=== PATIENT | female | born 1950 | race Caucasian/White ===

== ENCOUNTER 2020-08-30 09:23 | Day surgery (SDC) | payer MEDICARE, BC ==
[~2020-08-30 09:23] MED LIST: Lactated Ringers 1,000 ML IV SCH; Sodium Chloride 0.9% 10 ML Syringe FLUSH PRN
[2020-08-30] MEDS ORDERED: Midazolam 1 MG/ML 2 ML SDV ONE ×2 (09:58→11:27)
[2020-08-30] MEDS ORDERED: Propofol 200 MG/20 ML SDV ONE ×2 (09:59→11:27)
--- NOTE | 2020-08-30 10:46 | PCM.PN ---
- General Info Date of Service: 08/30/20 - Review of Systems Systems Review Comment:: 70-year-old female referred for screening colonoscopy. It has been many years since her prior colon exam. She denies any recent change in bowel pattern. Specifically she has not noticed any rectal bleeding or change in bowel pattern. She also denies any known history of family history of colon cancer. Patient is medically stable to proceed today. Her recent history and physical is reviewed and no significant changes are noted. I have discussed the proposed colonoscopy with the patient. Risks such as but not limited to bleeding and GI injury reviewed. She agrees to proceed. - Patient Data Vitals - Most Recent: Last Vital Signs Temp 97.8 F 08/30/20 10:18 Pulse 74 08/30/20 10:18 Resp 16 08/30/20 10:18 BP 132/72 08/30/20 10:18 Pulse Ox 98 08/30/20 10:18 Weight - Most Recent: 119 kg Lab Results Last 24 Hours: Laboratory Results - last 24 hr 08/30/20 Range/Units 10:14 POC Glucose 129 H (65-110) mg/dl Med Orders - Current: Current Medications Lactated Ringer's (Ringers, Lactated) 1,000 mls @ 125 mls/hr IV ASDIRECTED ABBI Last Admin: 08/30/20 10:15 Dose: 125 mls/hr Documented by: Sodium Chloride (Saline Flush) 10 ml FLUSH ASDIRECTED PRN PRN Reason: Keep Vein Open Discontinued Medications Midazolam HCl (Versed 1 Mg/Ml) Confirm Administered Dose 2 mg .ROUTE .STK-MED ONE Stop: 08/30/20 09:59 Propofol (Diprivan 20 Ml) Confirm Administered Dose 400 mg .ROUTE .STK-MED ONE Stop: 08/30/20 10:00 Sepsis Event Note - Focused Exam Vital Signs: Vital Signs Temp Pulse Resp BP Pulse Ox 08/30/20 10:18 97.8 F 74 16 132/72 98 - Problem List Review Problem List Initiated/Reviewed/Updated: Yes - My Orders Last 24 Hours: My Active Orders 08/30/20 08:00 Accu Check [Blood Glucose Check, Bedside] [RC] ONETIME - Assessment Assessment:: Colon cancer screening - Plan Plan:: Colonoscopy
--- NOTE | 2020-08-30 11:34 | PCM.OPNOTE ---
- General Post-Op/Procedure Note Date of Surgery/Procedure: 08/30/20 Operative Procedure(s): Colonoscopy with polypectomy Findings: Multiple small polyps Moderate sigmoid diverticulosis Pre Op Diagnosis: Colon cancer screening Post-Op Diagnosis: Colon polyps. Diverticulosis Anesthesia Technique: MAC Primary Surgeon: Andrew Mcgill Pathology: Colon polyps EBL in mLs: 2 Complications: None Condition: Good
--- NOTE | 2020-08-30 13:19 | OR ---
Date of Procedure: 08/30/2020 PREOPERATIVE DIAGNOSIS: Colon cancer screening. POSTOPERATIVE DIAGNOSIS: Colon polyps and sigmoid diverticulosis. OPERATIONS PERFORMED: Colonoscopy with polypectomy. INDICATIONS FOR SURGERY: This 70-year-old female comes today for colonoscopy. She denies any recent change in bowel pattern, but states that it has been several years since her last colonoscopy. FINDINGS: Multiple small polyps were noted in the colon. Each are 4 to 5 mm in size. They are located in the sigmoid colon, 25 cm from the anal verge, splenic flexure, and also a cluster of 2 polyps in the ascending colon. The patient also has moderate diverticulosis of the sigmoid region. DESCRIPTION OF PROCEDURE: The patient was taken to the operating room. She was given intravenous sedation, and with her in the left lateral decubitus position, digital rectal exam was performed showing no rectal masses. The Olympus colonoscope was inserted into the rectum. Retroflexed examination of the rectal canal was performed. The scope was then carefully advanced under direct visualization through the entire length of the colon until the cecum was reached. Cecal acquisition was confirmed by noting normal internal cecal anatomy including the appendiceal orifice and the ileocecal valve. The colon was somewhat tortuous and accessing the cecum did require hand pressure, but was able to be eventually safely accomplished. After examining the cecum, the scope was slowly withdrawn sequentially re-examining the colonic segments. During insertion and withdrawal of the scope, the above-described polyps were each identified and when identified, they were all removed with the cold biopsy forceps completely removing all of the small polyps. After the examination had been completed and with no sign of any complication, the scope was removed and the patient was taken from the operating room in satisfactory condition. ESTIMATED BLOOD LOSS: 2 mL. COMPLICATIONS: None. PROGNOSIS: Good. PIPPA Mcgill MD /[id number]
== END 2020-08-30 12:45 | disposition home or self-care (01) ==
LOC: LL.SDS 09:23
PROVIDERS: ATTEND Surgery
DX: Z12.11 Encounter for screening for malignant neoplasm of colon (principal); D12.2 Benign neoplasm of ascending colon; K57.30 Diverticulosis of large intestine without perforation or abscess without bleeding; K63.89 Other specified diseases of intestine; I12.9 Hypertensive chronic kidney disease with stage 1 through stage 4 chronic kidney disease, or unspecified chronic kidney disease; E11.22 Type 2 diabetes mellitus with diabetic chronic kidney disease; N18.32 Chronic kidney disease, stage 3b; E03.9 Hypothyroidism, unspecified; E66.01 Morbid (severe) obesity due to excess calories; F32.9 Major depressive disorder, single episode, unspecified; Z01.812 Encounter for preprocedural laboratory examination; Z20.828 Contact with and (suspected) exposure to other viral communicable diseases; Z88.8 Allergy status to other drugs, medicaments and biological substances; Z79.899 Other long term (current) drug therapy; Z79.4 Long term (current) use of insulin; Z79.890 Hormone replacement therapy; Z68.42 Body mass index [BMI] 45.0-49.9, adult
CPT/HCPCS: 00812; 82962; J2250; J2704; J7120; U0002

== ENCOUNTER 2021-07-28 14:48 | Emergency (ER) | payer MEDICARE, BC ==
[2021-07-28] MEDS ORDERED: Meclizine 25 MG Tab PO ONE (15:34)
--- NOTE | 2021-07-28 15:47 | EDM.PDOC ---
ED HPI GENERAL MEDICAL PROBLEM - General Chief Complaint: General Stated Complaint: INNER EAR PROBLEMS, MULTIPLE COMPLAINTS Time Seen by Provider: 07/28/21 15:00 Source of Information: Reports: Patient History Limitations: Reports: No Limitations - History of Present Illness INITIAL COMMENTS - FREE TEXT/NARRATIVE: Patient comes to ER with complaint of dizziness. Worse with head rotation. Worse when rolling over in bed at night. Sometimes feels weak in knees. Started two weeks ago. Has had some headaches. No specific ear pain. No vision changes. No sore throat/URI complaints. No runny nose. A little more achy in joints/back. Sometimes feels like abdomen is "burning" (has history of GERD) No cough/SOB/respiratory changes. No UTI complaints. Had one episode nausea/emesis. No bowel changes. No new focal neuro deficits. Denies fevers but has had some chills at night since dizziness started. - Related Data Allergies Allergy/AdvReac Type Severity Reaction Status Date / Time Cephalosporins Allergy Itching Verified 07/28/21 15:02 medroxyprogesterone Allergy Itching Verified 07/28/21 15:02 sunscreen Allergy Hives Uncoded 07/28/21 15:02 Home Meds: Home Meds Bisoprolol/Hydrochlorothiazide [Ziac 5-6.25 MG] 1 tab PO DAILY 08/29/20 [History] Colesevelam [Welchol] 3 tab PO BIDAC 08/29/20 [History] Fenofibrate 50 mg PO DAILY 08/29/20 [History] Fenofibrate 150 mg PO DAILY 08/29/20 [History] Insulin Glargine,Hum.Rec.Anlog [Lantus Solostar] 88 unit SQ DAILY 08/29/20 [History] Levothyroxine Sodium [Synthroid] 175 mcg PO ACBREAKFAST 08/29/20 [History] Liraglutide [Victoza] 1.2 mg SUBCUT DAILY 08/29/20 [History] Sertraline [Zoloft] 100 mg PO DAILY 08/29/20 [History] lisinopriL [Lisinopril] 5 mg PO DAILY 08/29/20 [History] metFORMIN HCl [Metformin HCl] 1,000 mg PO DAILY 08/29/20 [History] Amoxicillin/Potassium Clav [Augmentin 875-125 Tablet] 1 each PO Q12H #13 tablet 07/28/21 [Rx] Meclizine [Antivert] 25 mg PO Q6H PRN #50 tab 07/28/21 [Rx] Past Medical History HEENT History: Reports: Impaired Vision Other HEENT History: wears glasses Cardiovascular History: Reports: High Cholesterol, Hypertension Respiratory History: Reports: Sleep Apnea Gastrointestinal History: Reports: GERD Genitourinary History: Reports: Urinary Incontinence Psychiatric History: Reports: Anxiety, Depression Endocrine/Metabolic History: Reports: Hyperthyroidism, IDDM, Obesity/BMI 30+ - Past Surgical History GI Surgical History: Reports: Colonoscopy Female Surgical History: Reports: Section Social & Family History - Caffeine Use Caffeine Use: Reports: Soda ED ROS GENERAL - Review of Systems Review Of Systems: Comprehensive ROS is negative, except as noted in HPI. ED EXAM, GENERAL - Physical Exam Exam: See Below Exam Limited By: No Limitations General Appearance: Alert, No Apparent Distress, Obese Eye Exam: Bilateral Eye: EOMI, PERRL Ears: Normal External Exam, Normal Canal, Hearing Grossly Normal Ear Exam: Right Ear: TM Dull, TM Red, TM Bulging, Left Ear: TM normal Nose: No: Nasal Deformity, Nasal Swelling, Nasal Drainage Throat/Mouth: Normal Inspection, Normal Lips, Normal Voice, No Airway Compromise Head: Atraumatic, Normocephalic Neck: Supple, Non-Tender, Full Range of Motion. No: Lymphadenopathy (L), Lymphadenopathy (R) Respiratory/Chest: No Respiratory Distress, Lungs Clear, Normal Breath Sounds, No Accessory Muscle Use Cardiovascular: Regular Rate, Rhythm, No Murmur GI/Abdominal: Normal Bowel Sounds, Soft, Non-Tender, No Distention (Female) Exam: Deferred Rectal (Female) Exam: Deferred Back Exam: No: CVA Tenderness (L), CVA Tenderness (R), Muscle Spasm Extremities: Normal Range of Motion, Non-Tender, Normal Capillary Refill Neurological: Alert, Oriented, CN II-XII Intact, Normal Cognition, No Motor/Sensory Deficits Psychiatric: Normal Affect, Normal Mood Skin Exam: Warm, Dry, Intact, Normal Color Course - Vital Signs Last Recorded V/S: Last Vital Signs Temp 36.6 C 07/28/21 15:00 Pulse 84 07/28/21 15:00 Resp 18 07/28/21 15:00 BP 135/71 07/28/21 15:00 Pulse Ox 99 07/28/21 15:00 - Orders/Labs/Meds Orders: Active Orders 24 hr Category Date Time Status CORONAVIRUS COVID-19 KUMAR [MOLEC] Stat Lab 07/28/21 15:50 Received Isolation [COMM] Routine Oth 07/28/21 15:40 Active Labs: Laboratory Tests 07/28/21 07/28/21 07/28/21 Range/Units 15:43 15:43 15:50 WBC 8.5 (4.0-10.2) K/uL RBC 4.47 (3.77-5.09) M/uL Hgb 13.5 (11.7-15.5) g/dL Hct 39.1 (34.0-46.0) % MCV 87.5 (84.0-98.0) fL MCH 30.2 (28.2-33.3) pg MCHC 34.5 (31.7-36.0) g/dL RDW 13.0 (11.2-14.1) % Plt Count 292 (150-350) K/uL Neut % (Auto) 49.6 (45.0-80.0) % Lymph % (Auto) 36.2 (10.0-50.0) % [place] % (Auto) 4.6 (2.0-14.0) % Eos % (Auto) 8.8 H (0.0-5.0) % Baso % (Auto) 0.8 (0.0-2.0) % Neut # (Auto) 4.19 (1.40-7.00) K/uL Lymph # (Auto) 3.06 (0.50-3.50) K/uL [place] # (Auto) 0.39 (0.00-1.00) K/uL Eos # (Auto) 0.74 H (0.00-0.50) K/uL Baso # (Auto) 0.07 (0.00-0.20) K/uL Sodium 141 (136-145) mmol/L Potassium 4.4 (3.5-5.1) mmol/L Chloride 107 (98-107) mmol/L Carbon Dioxide 24.1 (21.0-32.0) mmol/L Anion Gap 9.9 (7-15) meq/L BUN 20 H (7-18) mg/dL Creatinine 1.34 H (0.51-1.17) mg/dL Est Cr Clr Drug Dosing 29.48 mL/min Estimated GFR (MDRD) 39 mL/min Glucose 155 H (70-99) mg/dL Calcium 9.1 (8.5-10.1) mg/dL Magnesium 1.9 (1.8-2.4) mg/dL Total Bilirubin 0.3 (0.2-1.0) mg/dL AST 26 (15-37) U/L ALT 35 (12-78) U/L Alkaline Phosphatase 33 L (46-116) IU/L Troponin I High Sens 5 (<=51) ng/L Total Protein 7.2 (6.4-8.2) g/dL Albumin 3.5 (3.4-5.0) g/dL Amylase 51 (25-115) U/L Lipase 267 (73-393) U/L Specimen Type Urine Color Urine Appearance Urine pH (5.0-9.0) Ur Specific [place] (1.005-1.030) Urine Protein (NEGATIVE) mg/dL Urine Glucose (UA) (NEGATIVE) mg/dL Urine Ketones (NEGATIVE) mg/dL Urine Occult Blood (NEGATIVE) Urine Nitrite (NEGATIVE) Urine Bilirubin (NEGATIVE) Urine Urobilinogen (0.2-1.0) E.U./dL Ur Leukocyte Esterase (NEGATIVE) Urine RBC /HPF Urine WBC /HPF Ur Epithelial Cells /LPF Urine Bacteria (NONE TO FEW) /HPF SARS-CoV-2 Ag (Rapid) Negative (NEGATIVE) 07/28/21 Range/Units 16:03 WBC (4.0-10.2) K/uL RBC (3.77-5.09) M/uL Hgb (11.7-15.5) g/dL Hct (34.0-46.0) % MCV (84.0-98.0) fL MCH (28.2-33.3) pg MCHC (31.7-36.0) g/dL RDW (11.2-14.1) % Plt Count (150-350) K/uL Neut % (Auto) (45.0-80.0) % Lymph % (Auto) (10.0-50.0) % [place] % (Auto) (2.0-14.0) % Eos % (Auto) (0.0-5.0) % Baso % (Auto) (0.0-2.0) % Neut # (Auto) (1.40-7.00) K/uL Lymph # (Auto) (0.50-3.50) K/uL [place] # (Auto) (0.00-1.00) K/uL Eos # (Auto) (0.00-0.50) K/uL Baso # (Auto) (0.00-0.20) K/uL Sodium (136-145) mmol/L Potassium (3.5-5.1) mmol/L Chloride (98-107) mmol/L Carbon Dioxide (21.0-32.0) mmol/L Anion Gap (7-15) meq/L BUN (7-18) mg/dL Creatinine (0.51-1.17) mg/dL Est Cr Clr Drug Dosing mL/min Estimated GFR (MDRD) mL/min Glucose (70-99) mg/dL Calcium (8.5-10.1) mg/dL Magnesium (1.8-2.4) mg/dL Total Bilirubin (0.2-1.0) mg/dL AST (15-37) U/L ALT (12-78) U/L Alkaline Phosphatase (46-116) IU/L Troponin I High Sens (<=51) ng/L Total Protein (6.4-8.2) g/dL Albumin (3.4-5.0) g/dL Amylase (25-115) U/L Lipase (73-393) U/L Specimen Type Urinblad Urine Color Yellow Urine Appearance Slightly cloudy Urine pH 7.0 (5.0-9.0) Ur Specific [place] 1.025 (1.005-1.030) Urine Protein Negative (NEGATIVE) mg/dL Urine Glucose (UA) Negative (NEGATIVE) mg/dL Urine Ketones Negative (NEGATIVE) mg/dL Urine Occult Blood Negative (NEGATIVE) Urine Nitrite Negative (NEGATIVE) Urine Bilirubin Negative (NEGATIVE) Urine Urobilinogen 0.2 (0.2-1.0) E.U./dL Ur Leukocyte Esterase Negative (NEGATIVE) Urine RBC Not seen /HPF Urine WBC 0-5 /HPF Ur Epithelial Cells Many H /LPF Urine Bacteria Few (NONE TO FEW) /HPF SARS-CoV-2 Ag (Rapid) (NEGATIVE) Meds: Medications Discontinued Medications Generic Name Dose Route Start Last Admin Trade Name Freq PRN Reason Stop Dose Admin Amoxicillin/Clavulanate Potassium 1 tab 07/28/21 17:06 Amoxicillin/Clavulanate K 875-125 Mg Tab PO 07/28/21 17:07 ONETIME ONE Meclizine HCl 25 mg 07/28/21 15:34 07/28/21 15:46 Meclizine 25 Mg Tab PO 07/28/21 15:35 25 mg ONETIME ONE Administration - Re-Assessments/Exams Free Text/Narrative Re-Assessment/Exam: 07/28/21 15:49 No nystagmus with head rotation. Right ear shows fluid build up/purulence which could very well likely be causing pt's dizziness episodes. Basic labs ordered. Added Covid and Influenza testing given her complaints of headache/increased arthritis aches/night chills. Meclizine given. 07/28/21 17:15 Labs unremarkable. Plan at this time is to start patient on Augmentin and PRN Meclizine. She is to follow up at clinic if no improvement over the next week. Consider PT referral for the dizziness if needed. Additional workup as needed if symptoms do not improve. Patient in agreement with plan. Departure - Departure Time of Disposition: 17:06 Disposition: Home, Self-Care 01 Condition: Good Clinical Impression: Right otitis media Qualifiers: Otitis media type: suppurative Chronicity: acute Recurrence: non-recurrent Spontaneous tympanic membrane rupture: without spontaneous rupture Qualified Code(s): H66.001 - Acute suppurative otitis media without spontaneous rupture of ear drum, right ear - Discharge Information *PRESCRIPTION DRUG MONITORING PROGRAM REVIEWED*: Not Applicable *COPY OF PRESCRIPTION DRUG MONITORING REPORT IN PATIENT MEAGAN: Not Applicable Prescriptions: Meclizine [Antivert] 25 mg PO Q6H PRN #50 tab PRN Reason: Dizziness Amoxicillin/Potassium Clav [Augmentin 875-125 Tablet] 1 each PO Q12H #13 tablet Referrals: Sarahi Shannon PA [Primary Care Provider] - Forms: ED Department Discharge Additional Instructions: See if symptoms improve. Remember there is always a chance you could be allergic to an antibiotic. If you start to have itching/rash please discontinue the medication. Get follow up appointment at clinic. If dizziness persists you may benefit from referral to physical therapy. They may also want to do more testing such as get baseline head CT as we discussed. You may have picked up a viral infection given the ear issue/dizziness/night chills/increased aches. See if those improve over the next week. If no improvement noted, follow up at clinic. Return to ER if you have sudden severe worsening. Sepsis Event Note (ED) - Evaluation Sepsis Screening Result: No Definite Risk - Focused Exam Vital Signs: Vital Signs Temp Pulse Resp BP Pulse Ox 07/28/21 15:00 36.6 C 84 18 135/71 99 - My Orders Last 24 Hours: My Active Orders 07/28/21 15:40 Isolation [COMM] Routine 07/28/21 15:50 CORONAVIRUS COVID-19 KUMAR [MOLEC] Stat - Assessment/Plan Last 24 Hours: My Active Orders 07/28/21 15:40 Isolation [COMM] Routine 07/28/21 15:50 CORONAVIRUS COVID-19 KUMAR [MOLEC] Stat
[2021-07-28 16:12] LABS: ANION GAP 9.9 meq/L (7-15)
[2021-07-28] MEDS ORDERED: Amoxicillin/Clavulanate K 875-125 MG Tab PO ONE (17:06)
== END 2021-07-28 17:30 | disposition home or self-care (01) ==
LOC: LL.ED 14:48
DX: H66.001 Acute suppurative otitis media without spontaneous rupture of ear drum, right ear (principal); K21.9 Gastro-esophageal reflux disease without esophagitis; I10 Essential (primary) hypertension; E78.00 Pure hypercholesterolemia, unspecified; E05.90 Thyrotoxicosis, unspecified without thyrotoxic crisis or storm; E66.9 Obesity, unspecified; Z68.39 Body mass index [BMI] 39.0-39.9, adult; Z20.822 Contact with and (suspected) exposure to COVID-19; Z79.899 Other long term (current) drug therapy
CPT/HCPCS: 36415; 80053; 81001; 82150; 83690; 83735; 84484; 85025; 87426; 87804; 99284; A9270-GY

== ENCOUNTER 2022-04-09 07:41 | Emergency (ER) | payer MEDICARE, BC ==
[2022-04-09] MEDS ORDERED: methylPREDNISolone Sodium Succinate 125 MG/2 ML SDV IVPUSH ONE (09:33)
[2022-04-09] MEDS ORDERED: Ondansetron 4 MG Tab.DIS PO ONE (09:34)
[2022-04-09] MEDS ORDERED: Acetaminophen/oxyCODONE 325-5 MG Tab PO ONE (09:35)
[2022-04-09] MEDS ORDERED: Morphine 2 MG/ML SYRINGE IVPUSH ONE (09:35)
[2022-04-09] MEDS ORDERED: Acetaminophen 325 MG Tab PO ONE (09:35)
[2022-04-09] MEDS: Sodium Chloride 0.9% 10 ML Syringe FLUSH PRN (09:57)
== END 2022-04-09 10:35 | disposition home or self-care (01) ==
LOC: LL.ED 07:41
DX: G89.29 Other chronic pain (principal); M25.551 Pain in right hip; E78.00 Pure hypercholesterolemia, unspecified; E11.22 Type 2 diabetes mellitus with diabetic chronic kidney disease; I12.9 Hypertensive chronic kidney disease with stage 1 through stage 4 chronic kidney disease, or unspecified chronic kidney disease; N18.9 Chronic kidney disease, unspecified; E05.90 Thyrotoxicosis, unspecified without thyrotoxic crisis or storm; K21.9 Gastro-esophageal reflux disease without esophagitis; Z88.8 Allergy status to other drugs, medicaments and biological substances; Z79.4 Long term (current) use of insulin; Z79.899 Other long term (current) drug therapy
CPT/HCPCS: 36415; 72100; 73502; 80053; 83735; 85025; 96374; 96375; 99284; A9270; J2270; J2930; J3490

== ENCOUNTER 2022-08-09 19:04 | Emergency (ER) | payer MEDICARE, BC ==
[2022-08-09] MEDS ORDERED: Sodium Chloride 0.9% 10 ML Syringe FLUSH PRN (19:17)
[2022-08-09] MEDS ORDERED: Lactated Ringers 1,000 ML IV ONE (19:17)
[2022-08-09] MEDS ORDERED: Ondansetron 4 MG/2 ML SDV IVPUSH ONE (19:18)
[2022-08-09] MEDS ORDERED: Lisinopril 10 MG Tab PO ONE (19:19)
[2022-08-09 19:46] LABS: ANION GAP 9.6 meq/L (7-15)
== END 2022-08-09 23:30 | disposition home or self-care (01) ==
LOC: LL.ED 19:04
DX: K52.9 Noninfective gastroenteritis and colitis, unspecified (principal); I16.0 Hypertensive urgency; E78.00 Pure hypercholesterolemia, unspecified; K21.9 Gastro-esophageal reflux disease without esophagitis; I12.9 Hypertensive chronic kidney disease with stage 1 through stage 4 chronic kidney disease, or unspecified chronic kidney disease; E11.22 Type 2 diabetes mellitus with diabetic chronic kidney disease; N18.9 Chronic kidney disease, unspecified; E05.90 Thyrotoxicosis, unspecified without thyrotoxic crisis or storm; Z87.891 Personal history of nicotine dependence; Z88.1 Allergy status to other antibiotic agents; Z88.8 Allergy status to other drugs, medicaments and biological substances; Z91.048 Other nonmedicinal substance allergy status; Z79.4 Long term (current) use of insulin; Z79.82 Long term (current) use of aspirin; Z79.899 Other long term (current) drug therapy
CPT/HCPCS: 36415; 80053; 81001; 83605; 83735; 85025; 96361; 96374; 99284; A9270; J2405; J7120

== ENCOUNTER 2023-04-16 10:50 | Day surgery (SDC) | payer MEDICARE, BC ==
[~2023-04-16 10:50] MED LIST changes: +Propofol 200 MG/20 ML SDV ONE
[2023-04-16] MEDS ORDERED: Sodium Chloride 0.9% 10 ML Syringe FLUSH PRN ×2 (11:00)
[2023-04-16] MEDS ORDERED: Lactated Ringers 1,000 ML IV SCH ×2 (11:00)
[2023-04-16] MEDS ORDERED: Propofol 200 MG/20 ML SDV ONE (13:11)
== END 2023-04-16 14:10 | disposition home or self-care (01) ==
LOC: LL.SDS 10:50
PROVIDERS: ATTEND Surgery
DX: Z12.11 Encounter for screening for malignant neoplasm of colon (principal); D12.0 Benign neoplasm of cecum; K21.9 Gastro-esophageal reflux disease without esophagitis; K29.50 Unspecified chronic gastritis without bleeding; K31.89 Other diseases of stomach and duodenum; E78.00 Pure hypercholesterolemia, unspecified; G47.30 Sleep apnea, unspecified; E11.22 Type 2 diabetes mellitus with diabetic chronic kidney disease; I12.9 Hypertensive chronic kidney disease with stage 1 through stage 4 chronic kidney disease, or unspecified chronic kidney disease; N18.32 Chronic kidney disease, stage 3b; M19.90 Unspecified osteoarthritis, unspecified site; F33.42 Major depressive disorder, recurrent, in full remission; E55.9 Vitamin D deficiency, unspecified; E78.2 Mixed hyperlipidemia; F03.90 Unspecified dementia, unspecified severity, without behavioral disturbance, psychotic disturbance, mood disturbance, and anxiety; E03.9 Hypothyroidism, unspecified; E66.09 Other obesity due to excess calories; Z79.890 Hormone replacement therapy; Z88.1 Allergy status to other antibiotic agents; Z88.8 Allergy status to other drugs, medicaments and biological substances; Z79.899 Other long term (current) drug therapy; Z79.84 Long term (current) use of oral hypoglycemic drugs; Z90.710 Acquired absence of both cervix and uterus; Z68.42 Body mass index [BMI] 45.0-49.9, adult
CPT/HCPCS: 00813; 82947; 88305; J2704; J7120

== ENCOUNTER 2024-05-03 09:40 | Inpatient (IN) | payer MEDICARE, BC ==
[2024-05-03] MEDS ORDERED: Naloxone 0.4 MG/ML SDV IVPUSH PRN (10:15)
[2024-05-03] MEDS ORDERED: Sodium Chloride 0.9% 10 ML Syringe FLUSH PRN (10:15)
[2024-05-03] MEDS ORDERED: 50% Dextrose in Water 50 ML Syringe IVPUSH PRN (10:15)
[2024-05-03] MEDS ORDERED: Glucagon,Human Recombinant 1 MG Vial IM PRN ×2 (10:15)
[2024-05-03 11:50] LABS: GLUCOSE,POC 144 mg/dL (70-99)
[2024-05-03] MEDS: traMADol 50 MG Tab PO SCH (11:50)
[2024-05-03] MEDS: Insulin Lispro 100 Units/ML 3 ML Vial SUBCUT SCH (12:12)
[2024-05-03] MEDS: Acetaminophen 500 MG Tab PO SCH (14:30)
[2024-05-03 17:38] LABS: GLUCOSE,POC 165 mg/dL (70-99)
[2024-05-03] MEDS: Docusate Sodium 100 MG Cap PO SCH (17:45)
[2024-05-03] MEDS: LIRAGLUTIDE 18 MG/3 ML SQ SCH (17:46)
[2024-05-03] MEDS: Nystatin Topical Powder 15 GM Bottle TOP SCH (20:28)
[2024-05-03] MEDS: Insulin Glarg,Human.Rec.Analog 100 Unit/ML 10 ML Vial SUBCUT SCH (20:29)
[2024-05-03] MEDS: Oxybutynin 5 MG Tab PO SCH (20:29)
[2024-05-03] MEDS: Melatonin 3 MG Tab PO PRN (20:30)
[2024-05-04] MEDS: Melatonin 3 MG Tab ONE (06:45)
[2024-05-04 06:59] LABS: GLUCOSE,POC 162 mg/dL (70-99)
[2024-05-04] MEDS: Polyethylene Glycol 3350 Powder 17 GM Packet PO SCH (07:24)
[2024-05-04] MEDS: Fenofibrate,Micronized 67 MG Cap PO SCH (07:25)
[2024-05-04] MEDS: Fenofibrate,Micronized 134 MG Cap PO SCH (07:26)
[2024-05-04] MEDS: Enoxaparin 30 MG/0.3 ML Syringe SUBCUT SCH (07:27)
[2024-05-04] MEDS: BISOPROLOL PO SCH (07:28)
[2024-05-04] MEDS: COLESEVELAM 625 MG PO SCH (07:28)
[2024-05-04] MEDS: Lactulose Soln 10 GM/15 ML 30 ML UD Cup PO SCH (07:28)
[2024-05-04] MEDS: HYDROCHLOROTHIAZIDE PO SCH (07:28)
[2024-05-04] MEDS: Lisinopril 20 MG Tab PO SCH (07:32)
[2024-05-04 15:12] LABS: CORONAVIRUS COVID-19 NAA NEGATIVE (NEGATIVE)
[2024-05-04 16:48] LABS: GLUCOSE,POC 234 mg/dL (70-99)
[2024-05-04] MEDS ORDERED: Glucagon,Human Recombinant 1 MG Vial IM PRN (17:07)
[2024-05-04] MEDS ORDERED: 50% Dextrose in Water 50 ML Syringe IVPUSH PRN (17:07)
[2024-05-04] MEDS: Morphine 2 MG/ML SYRINGE SUBCUT PRN (17:09)
[2024-05-04] MEDS: metFORMIN 500 MG Tab.ER PO SCH (17:39)
[2024-05-04] MEDS: Insulin Glarg,Human.Rec.Analog 100 Unit/ML 10 ML Vial SUBCUT SCH (20:27)
[2024-05-04 20:29] LABS: GLUCOSE,POC 256 mg/dL (70-99)
[2024-05-05 07:02] LABS: GLUCOSE,POC 178 mg/dL (70-99)
[2024-05-05 13:05] VITALS: BP 132/71; PULSE 73
== END 2024-05-05 13:30 | DRG 561 ==
LOC: LL.MS 10:40
PROVIDERS: ADMIT Physician Assistant Medical; ATTEND Physician Assistant Medical
DX: S42.211D Unspecified displaced fracture of surgical neck of right humerus, subsequent encounter for fracture with routine healing (principal); E11.9 Type 2 diabetes mellitus without complications; Z79.4 Long term (current) use of insulin; Z79.899 Other long term (current) drug therapy; W01.10XA Fall on same level from slipping, tripping and stumbling with subsequent striking against unspecified object, initial encounter
CPT/HCPCS: 82947; 97530-GP; 97535-GO; A9270-GY; J1650; J2270; U0002

== ENCOUNTER 2024-05-29 14:40 | Emergency (ER) | payer MEDICARE, BC ==
[2024-05-29 15:14] LABS: BASOPHILS ABSOLUTE AUTO 0.03 K/uL (0.00-0.20); BASOPHILS PERCENT AUTO 0.3 % (0.0-2.0); EOSINOPHILS PERCENT AUTO 8.1 % (0.0-5.0); HEMATOCRIT 36.6 % (34.0-46.0); HEMOGLOBIN 12.3 g/dL (11.7-15.5); LYMPHOCYTES ABSOLUTE AUTO 2.58 K/uL (0.50-3.50); LYMPHOCYTES PERCENT AUTO 29.9 % (10.0-50.0); MEAN CORPUSCULAR HEMOGLOBIN 31.4 pg (28.2-33.3); MEAN CORPUSCULAR HGB CONC 33.6 g/dL (31.7-36.0); MEAN CORPUSCULAR VOLUME 93.4 fL (84.0-98.0); MONOCYTES ABSOLUTE AUTO 0.61 K/uL (0.00-1.00); MONOCYTES PERCENT AUTO 7.1 % (2.0-14.0); NEUTROPHILS PERCENT AUTO 54.6 % (45.0-80.0); PLATELET COUNT,PLT 228 K/uL (150-350); RED BLOOD CELL COUNT 3.92 M/uL (3.77-5.09); RED CELL DISTRIBUTION WIDTH 12.8 % (11.2-14.1); WHITE BLOOD CELL COUNT,WBC 8.6 K/uL (4.0-10.2)
[2024-05-29 15:29] LABS: INR 1.1 (0.9-1.1); PROTHROMBIN TIME 10.6 SEC (9.0-11.1)
[2024-05-29 15:33] LABS: ALBUMIN 3.4 g/dL (3.4-5.0); ANION GAP 9.1 meq/L (7-15); BILIRUBIN TOTAL 0.2 mg/dL (0.2-1.0); CALCIUM 9.6 mg/dL (8.5-10.1); CARBON DIOXIDE,CO2 24.9 mmol/L (21.0-32.0); CREATININE 1.96 mg/dL (0.51-1.17); EST CRCL DRUG DOSING (CG) 19.29 mL/min; POTASSIUM,K 4.1 mmol/L (3.5-5.1); PROTEIN TOTAL,TP 7.2 g/dL (6.4-8.2)
[2024-05-29] MEDS: traMADol 50 MG Tab PO ONE (16:19)
== END 2024-05-29 17:05 ==
LOC: LL.ED 14:40
DX: S79.911A Unspecified injury of right hip, initial encounter (principal); I10 Essential (primary) hypertension; R60.9 Edema, unspecified; E78.00 Pure hypercholesterolemia, unspecified; E66.9 Obesity, unspecified; E11.9 Type 2 diabetes mellitus without complications; E03.9 Hypothyroidism, unspecified; Z88.8 Allergy status to other drugs, medicaments and biological substances; Z79.4 Long term (current) use of insulin; Z79.890 Hormone replacement therapy; Z79.899 Other long term (current) drug therapy; Z90.710 Acquired absence of both cervix and uterus; Z68.41 Body mass index [BMI] 40.0-44.9, adult; W19.XXXA Unspecified fall, initial encounter
CPT/HCPCS: 36415; 73560-RT; 80053; 85025; 85610; 99284; A9270-GY

== ENCOUNTER 2025-04-27 07:51 | Day surgery (SDC) | payer MEDICARE, BC ==
[2025-04-27] MEDS ORDERED: Sodium Chloride 0.9% 10 ML Syringe FLUSH PRN (08:00)
[2025-04-27] MEDS ORDERED: Propofol 200 MG/20 ML SDV ONE (08:04)
[2025-04-27] MEDS: Lactated Ringers 1,000 ML IV SCH (08:48)
== END 2025-04-27 11:05 | disposition home or self-care (01) ==
LOC: LL.SDS 07:51
PROVIDERS: ATTEND Surgery
DX: Z12.11 Encounter for screening for malignant neoplasm of colon (principal); K63.5 Polyp of colon; K57.30 Diverticulosis of large intestine without perforation or abscess without bleeding; E11.22 Type 2 diabetes mellitus with diabetic chronic kidney disease; I12.9 Hypertensive chronic kidney disease with stage 1 through stage 4 chronic kidney disease, or unspecified chronic kidney disease; N18.32 Chronic kidney disease, stage 3b; E78.5 Hyperlipidemia, unspecified; E03.9 Hypothyroidism, unspecified; E66.813 Obesity, class 3; Z79.4 Long term (current) use of insulin; Z68.42 Body mass index [BMI] 45.0-49.9, adult; Z86.0101 Personal history of adenomatous and serrated colon polyps
CPT/HCPCS: 00811; 82947; 99100; J2704; J7120